=== PATIENT | female | born 1935 ===

== ENCOUNTER 2018-11-29 17:43 | Emergency (ER) | payer OTHER ==
[~2018-11-29] VITALS: Ht 162.6 cm; Wt 54.4 kg
[~2018-11-29 17:43] MED LIST: ATENOLOL25 MG; LISINOPRIL2.5 MG
== END 2018-11-29 23:22 | disposition home or self-care (01) ==
LOC: ER 17:43
DX: R10.11 Right upper quadrant pain (principal)